=== PATIENT | female | born 1985 | race Caucasian/White ===

== ENCOUNTER 2024-08-02 15:04 | Inpatient (IN) | payer MEDICAID, OTHER ==
[~2024-08-02] VITALS: Ht 162.6 cm; Wt 79.1 kg
[2024-08-02 17:47] LABS: COVID AG,FIA SOURCE NASAL SWAB
[2024-08-02 17:49] LABS: BASOPHILS % (AUTO) 0.6 % (0.0-2.0); EOSINOPHILS % (AUTO) 1.5 % (1.0-6.0); HEMATOCRIT 32.5 % (36-46); HEMOGLOBIN 10.7 g/dL (12.0-16.0); LYMPHOCYTES # (AUTO) 1.7 K/uL (1.0-4.8); LYMPHOCYTES % (AUTO) 19.9 % (22.0-44.0); MEAN CORPUSCULAR HEMOGLOBIN 27.3 pg (26.0-34.0); MEAN CORPUSCULAR HGB CONC 32.8 G/dL (31.0-37.0); MEAN CORPUSCULAR VOLUME 83 fL (80-100); MONOCYTES # (AUTO) 0.6 K/uL (0.1-1.0); NEUTROPHILS # (AUTO) 6.1 K/uL (1.8-7.7); PLATELET COUNT (AUTO) 311 K/uL (150-450); RED BLOOD CELL COUNT(AUTO) 3.91 MIL/uL (4.00-5.20); RED CELL DISTRIBUTION WIDTH 17.5 % (11.5-14.5); WHITE BLOOD COUNT (AUTO) 8.6 K/uL (4.5-11.0)
[2024-08-02 17:56] LABS: ANION GAP 10 mmol/L (8-16); CALCIUM, TOTAL 8.8 mg/dL (8.8-10.5); CARBON DIOXIDE 23 mmol/L (22-29); CHLORIDE 102 mmol/L (98-107); CREATININE 0.72 mg/dL (0.60-1.30); GLOMERULAR FILTR. RATE CALC > 60 mL/min (>60); GLUCOSE,RANDOM 118 mg/dL (70-110); POTASSIUM 3.1 mmol/L (3.5-5.1); SODIUM SERUM 135 mmol/L (136-145); UREA NITROGEN, BLOOD 10 mg/dL (7-18)
[2024-08-02 18:04] LABS: ALCOHOL, BLOOD (SERUM) < 3 mg/dL (0-10)
[2024-08-02 18:08] LABS: SARS-COV2 (COVID) ANTIGEN,FIA Negative (Negative)
[2024-08-02 19:22] LABS: ALCOHOL, URINE DRUG SCREEN NEGATIVE (NEGATIVE); AMPHET/METH SCREEN,URINE POSITIVE (NEGATIVE); BARBITURATE SCREEN, URINE NEGATIVE (NEGATIVE); BENZODIAZEPINES SCREEN,URINE NEGATIVE (NEGATIVE); CANNABINOID SCREEN,URINE NEGATIVE (NEGATIVE); COCAINE SCREEN,URINE NEGATIVE (NEGATIVE); METHADONE SCREEN, URINE NEGATIVE (NEGATIVE); OPIATE SCREEN,URINE NEGATIVE (NEGATIVE); PHENCYCLIDINE SCREEN,URINE NEGATIVE (NEGATIVE)
[2024-08-02] MEDS: POTASSIUM CHLORIDE 20 MEQ ER TABLET PO ONE (20:16)
[2024-08-02] MEDS: HALOPERIDOL LACTATE 5 MG/ML VIAL IM ONE (20:54)
[2024-08-02] MEDS: DiphenhydrAMINE HCL 50 MG/ML VIAL IM ONE (20:55)
[2024-08-02] MEDS: LORazepam 2 MG/ML VIAL IM ONE (20:55)
[2024-08-03] MEDS: POTASSIUM CHLORIDE 20 MEQ ER TABLET PO ONE (23:01)
[2024-08-04 17:28] VITALS: BP 123/78; PULSE 89; RESP 18; TEMP 96.9; O2SAT 98
[2024-08-04 18:35] VITALS: BP 123/78; PULSE 89; RESP 18; TEMP 96.9; O2SAT 98
[2024-08-04 20:55] VITALS: RESP 18
[2024-08-05 11:34] VITALS: RESP 18
[2024-08-05] MEDS ORDERED: ALBUTEROL SULFATE HFA 90 MCG/PUFF 8 GM INHALER IH PRN (11:45)
[2024-08-05] MEDS ORDERED: MAG HYDROX/ALUMINUM HYD/SIMETH ES 30 ML SUSPENSION UDCUP PO PRN (11:45)
[2024-08-05] MEDS ORDERED: CloNIDine HCL 0.1 MG TABLET PO PRN (11:45)
[2024-08-05] MEDS ORDERED: ACETAMINOPHEN 325 MG TABLET PO PRN (11:45)
[2024-08-05] MEDS ORDERED: DOCUSATE SODIUM 100 MG CAPSULE PO PRN (11:45)
[2024-08-05] MEDS ORDERED: ONDANSETRON 4 MG TABLET PO PRN (11:45)
[2024-08-05] MEDS ORDERED: GuaiFENesin/D-METHORPHAN [SUGAR-FREE] 200-20MG/10 ML SYRUP UDCUP PO PRN (11:45)
[2024-08-05] MEDS ORDERED: PETROLATUM,WHITE 28 GM JELLY TP PRN (11:45)
[2024-08-05] MEDS ORDERED: NICOTINE 14 MG/24 HOUR PATCH TD PRN (11:45)
[2024-08-05] MEDS ORDERED: LOPERAMIDE HCL 2 MG CAPSULE PO PRN (11:45)
[2024-08-05] MEDS ORDERED: MAGNESIUM HYDROXIDE SUSPENSION 30 ML UDCUP PO PRN (11:45)
[2024-08-05] MEDS: OLANZapine 5 MG RAPDIS TABLET PO SCH (12:45)
[2024-08-05] MEDS: LEVOFLOXACIN 500 MG TABLET PO SCH (16:00)
[2024-08-05 20:57] VITALS: RESP 18
[2024-08-06 09:45] VITALS: BP 113/63; PULSE 97; RESP 18; TEMP 97.8; O2SAT 98
[2024-08-06 20:45] VITALS: RESP 18
[2024-08-07] MEDS: SILVER SULFADIAZINE 1% 25 GM CREAM TP SCH (08:42)
[2024-08-07] MEDS ORDERED: SILVER SULFADIAZINE 1% 25 GM CREAM TP SCH (09:00)
[2024-08-07 10:03] VITALS: BP 101/61; PULSE 90; RESP 16; TEMP 98.1; O2SAT 100
[2024-08-07 18:36] LABS: BASOPHILS % (AUTO) 0.7 % (0.0-2.0); EOSINOPHILS % (AUTO) 2.4 % (1.0-6.0); HEMOGLOBIN 11.5 g/dL (12.0-16.0); LYMPHOCYTES # (AUTO) 1.9 K/uL (1.0-4.8); LYMPHOCYTES % (AUTO) 23.3 % (22.0-44.0); MEAN CORPUSCULAR HEMOGLOBIN 27.3 pg (26.0-34.0); MEAN CORPUSCULAR HGB CONC 32.7 G/dL (31.0-37.0); MEAN CORPUSCULAR VOLUME 84 fL (80-100); MONOCYTES # (AUTO) 0.6 K/uL (0.1-1.0); MONOCYTES % (AUTO) 7.5 % (2.0-9.0); NEUTROPHILS # (AUTO) 5.4 K/uL (1.8-7.7); NEUTROPHILS % (AUTO) 66.1 % (40.0-70.0); PLATELET COUNT (AUTO) 342 K/uL (150-450); RED BLOOD CELL COUNT(AUTO) 4.19 MIL/uL (4.00-5.20); RED CELL DISTRIBUTION WIDTH 17.4 % (11.5-14.5); WHITE BLOOD COUNT (AUTO) 8.2 K/uL (4.5-11.0)
[2024-08-07 18:46] LABS: POTASSIUM 3.6 mmol/L (3.5-5.1); THYROID STIMULATING HORMONE 0.6 uIU/mL (0.36-3.74)
[2024-08-07 19:30] LABS: HEMOGLOBIN A1C 5.5 % (3.8-5.6)
[2024-08-07 20:42] VITALS: TEMP 98
[2024-08-08 08:49] VITALS: BP 113/58; PULSE 100; RESP 18; TEMP 98.1; O2SAT 100
[2024-08-08] MEDS: LORazepam 2 MG TABLET PO PRN (17:55)
[2024-08-08] MEDS: HALOPERIDOL 5 MG TABLET PO PRN (18:12)
[2024-08-08 20:34] VITALS: BP 121/71; PULSE 62; RESP 18; TEMP 98.2; O2SAT 98
[2024-08-09 09:14] VITALS: BP 98/53; PULSE 80; RESP 18; TEMP 97; O2SAT 98
[2024-08-09 20:47] VITALS: BP 129/83; PULSE 82; RESP 18; TEMP 97.8; O2SAT 99
[2024-08-10 08:43] VITALS: BP 93/57; PULSE 109; RESP 17; TEMP 97.8; O2SAT 99
[2024-08-10 15:22] VITALS: BP 126/67; PULSE 101; RESP 18
[2024-08-10 20:35] VITALS: BP 136/88; PULSE 70; RESP 18; TEMP 97.6
[2024-08-11 08:50] VITALS: BP 91/47; PULSE 100; RESP 18; TEMP 98.2; O2SAT 100
[2024-08-11 20:00] VITALS: BP 113/63; PULSE 100; RESP 18; TEMP 98; O2SAT 98
[2024-08-11] MEDS: ZOLPIDEM TARTRATE 10 MG TABLET PO PRN (21:31)
[2024-08-12 08:56] VITALS: BP 119/70; PULSE 98; RESP 18; TEMP 98.3; O2SAT 97
[2024-08-12 20:01] VITALS: BP 111/65; PULSE 110; RESP 20; TEMP 98.9; O2SAT 98
[2024-08-13 08:35] LABS: CHOL/HDL RATIO 4.7 (3.9-5.7)
[2024-08-13 09:29] VITALS: BP 126/71; PULSE 106; RESP 16; TEMP 97.5; O2SAT 100
[2024-08-13] MEDS: LORazepam 2 MG/ML VIAL IM ONE (12:35)
[2024-08-13] MEDS: HALOPERIDOL LACTATE 5 MG/ML VIAL IM ONE (12:35)
[2024-08-13] MEDS: DiphenhydrAMINE HCL 50 MG/ML VIAL IM ONE (12:36)
[2024-08-13 20:29] VITALS: BP 101/51; PULSE 113; RESP 18; TEMP 97.8; O2SAT 97
[2024-08-14 08:49] VITALS: BP 103/58; PULSE 96; RESP 14; TEMP 97.9; O2SAT 100
[2024-08-14] MEDS: LORazepam 2 MG/ML VIAL IM ONE (15:52)
[2024-08-14] MEDS: DiphenhydrAMINE HCL 50 MG/ML VIAL IM ONE (15:53)
[2024-08-14] MEDS: HALOPERIDOL LACTATE 5 MG/ML VIAL IM ONE (15:53)
[2024-08-14 20:13] VITALS: BP 115/65; PULSE 100; RESP 17; TEMP 97.8; O2SAT 100
[2024-08-14 20:50] VITALS: BP 120/64; PULSE 97; RESP 18; TEMP 97.6; O2SAT 98
[2024-08-14] MEDS: IBUPROFEN 400 MG TABLET PO PRN (20:54)
[2024-08-14 21:54] VITALS: RESP 18
[2024-08-15 08:22] VITALS: BP 89/48; PULSE 96; RESP 17; TEMP 97.4; O2SAT 99
[2024-08-15 09:22] VITALS: BP 98/57; PULSE 103; RESP 18; TEMP 97.2; O2SAT 99
[2024-08-15] MEDS: OLANZapine 5 MG RAPDIS TABLET PO SCH (21:16)
[2024-08-15 21:51] VITALS: BP 114/74; PULSE 104; RESP 18; TEMP 97.2; O2SAT 97
[2024-08-16 08:54] VITALS: BP 106/58; PULSE 72; RESP 18; TEMP 97.5; O2SAT 99
[2024-08-16 20:44] VITALS: BP 120/77; PULSE 86; RESP 18; TEMP 98.1; O2SAT 99
[2024-08-17 08:27] VITALS: BP 107/64; PULSE 101; RESP 18; TEMP 97.5; O2SAT 97
[2024-08-17 20:27] VITALS: BP 106/61; PULSE 107; RESP 18; TEMP 98.9; O2SAT 97
[2024-08-18 08:41] VITALS: BP 146/57; PULSE 76; RESP 18; TEMP 97.4; O2SAT 96
[2024-08-18 20:40] VITALS: BP 111/63; PULSE 107; RESP 19; TEMP 98.1; O2SAT 95
[2024-08-19 02:26] VITALS: BP 114/69; PULSE 96; RESP 18; O2SAT 98
[2024-08-19] MEDS ORDERED: OLAN5TAB94 PO (11:21)
== END 2024-08-19 16:04 | disposition home or self-care (01) | DRG 750 ==
LOC: EMS 15:14 → 3EI 08-04 16:55
PROVIDERS: ADMIT Psychiatry & Neurology Child & Adolescent Psychiatry; ATTEND Psychiatry & Neurology Child & Adolescent Psychiatry
PROC: GZ56ZZZ Individual Psychotherapy, Supportive (ICD-10-PCS; principal; 2024-08-05)
PROC: GZ52ZZZ Individual Psychotherapy, Cognitive (ICD-10-PCS; 2024-08-05)
DX: F20.0 Paranoid schizophrenia (principal); D64.9 Anemia, unspecified; F15.129 Other stimulant abuse with intoxication, unspecified; E87.6 Hypokalemia; I87.8 Other specified disorders of veins; F94.0 Selective mutism; R73.9 Hyperglycemia, unspecified; I10 Essential (primary) hypertension; Z20.822 Contact with and (suspected) exposure to COVID-19; Z88.1 Allergy status to other antibiotic agents; Z87.891 Personal history of nicotine dependence; Z78.1 Physical restraint status
CPT/HCPCS: 80048; 80061; 80307; 83036; 84132; 84443; 84703; 85025; 96372; 99291; G0480; J1200; J1630; J2060

== ENCOUNTER 2024-08-20 16:19 | Inpatient (IN) | payer MEDICAID ==
[~2024-08-20] VITALS: Ht 162.6 cm; Wt 76.0 kg
[~2024-08-20 16:19] MED LIST: OLAN5TAB94 PO
[2024-08-20] MEDS: LORazepam 2 MG/ML VIAL IM ONE (16:59)
[2024-08-20] MEDS: DiphenhydrAMINE HCL 50 MG/ML VIAL IM ONE (17:00)
[2024-08-20] MEDS: HALOPERIDOL LACTATE 5 MG/ML VIAL IM ONE (17:00)
[2024-08-20] MEDS: SODIUM CHLORIDE 0.9% 1,000 ML IV ONE (18:20)
[2024-08-20 18:29] LABS: COVID AG,FIA SOURCE NASAL SWAB
[2024-08-20 18:32] LABS: BASOPHILS % (AUTO) 0.3 % (0.0-2.0); EOSINOPHILS % (AUTO) 2.8 % (1.0-6.0); HEMATOCRIT 29.3 % (36-46); HEMOGLOBIN 9.5 g/dL (12.0-16.0); LYMPHOCYTES # (AUTO) 1.6 K/uL (1.0-4.8); LYMPHOCYTES % (AUTO) 18.5 % (22.0-44.0); MEAN CORPUSCULAR HEMOGLOBIN 27.7 pg (26.0-34.0); MEAN CORPUSCULAR HGB CONC 32.4 G/dL (31.0-37.0); MEAN CORPUSCULAR VOLUME 86 fL (80-100); MONOCYTES # (AUTO) 0.8 K/uL (0.1-1.0); MONOCYTES % (AUTO) 9.4 % (2.0-9.0); NEUTROPHILS # (AUTO) 5.9 K/uL (1.8-7.7); PLATELET COUNT (AUTO) 348 K/uL (150-450); RED BLOOD CELL COUNT(AUTO) 3.42 MIL/uL (4.00-5.20); RED CELL DISTRIBUTION WIDTH 17.9 % (11.5-14.5); WHITE BLOOD COUNT (AUTO) 8.5 K/uL (4.5-11.0)
[2024-08-20 18:44] LABS: ALCOHOL, BLOOD (SERUM) < 3 mg/dL (0-10)
[2024-08-20 18:47] LABS: SARS-COV2 (COVID) ANTIGEN,FIA Negative (Negative)
[2024-08-20 18:53] LABS: ANION GAP 9 mmol/L (8-16); CALCIUM, TOTAL 8.4 mg/dL (8.8-10.5); CARBON DIOXIDE 26 mmol/L (22-29); CHLORIDE 103 mmol/L (98-107); CREATININE 0.75 mg/dL (0.60-1.30); GLOMERULAR FILTR. RATE CALC > 60 mL/min (>60); GLUCOSE,RANDOM 100 mg/dL (70-110); POTASSIUM 3.4 mmol/L (3.5-5.1); SODIUM SERUM 138 mmol/L (136-145); UREA NITROGEN, BLOOD 15 mg/dL (7-18)
[2024-08-21] MEDS: LORazepam 2 MG TABLET PO ONE ×2 (02:31→08:55)
[2024-08-21] MEDS: ZIPRASIDONE MESYLATE 20 MG/VIAL IM ONE (09:55)
[2024-08-21] MEDS ORDERED: ACETAMINOPHEN 325 MG TABLET PO PRN (12:45)
[2024-08-21] MEDS ORDERED: MAGNESIUM HYDROXIDE SUSPENSION 30 ML UDCUP PO PRN ×2 (12:45)
[2024-08-21] MEDS ORDERED: MAG HYDROX/ALUMINUM HYD/SIMETH ES 30 ML SUSPENSION UDCUP PO PRN ×2 (12:45)
[2024-08-21] MEDS ORDERED: LOPERAMIDE HCL 2 MG CAPSULE PO PRN ×2 (12:45)
[2024-08-21 13:45] LABS: PH,URINE DRUG SCREEN 6.5 (5.0-8.0)
[2024-08-21 13:53] LABS: ALCOHOL, URINE DRUG SCREEN NEGATIVE (NEGATIVE); AMPHET/METH SCREEN,URINE NEGATIVE (NEGATIVE); BARBITURATE SCREEN, URINE NEGATIVE (NEGATIVE); BENZODIAZEPINES SCREEN,URINE NEGATIVE (NEGATIVE); CANNABINOID SCREEN,URINE POSITIVE (NEGATIVE); COCAINE SCREEN,URINE NEGATIVE (NEGATIVE); METHADONE SCREEN, URINE NEGATIVE (NEGATIVE); OPIATE SCREEN,URINE NEGATIVE (NEGATIVE); PHENCYCLIDINE SCREEN,URINE NEGATIVE (NEGATIVE)
[2024-08-21] MEDS: LORazepam 2 MG TABLET PO PRN (15:43)
[2024-08-21] MEDS: HALOPERIDOL 5 MG TABLET PO PRN (15:43)
[2024-08-21] MEDS: ZOLPIDEM TARTRATE 10 MG TABLET PO PRN (17:37)
[2024-08-22 00:30] VITALS: RESP 19; TEMP 98
[2024-08-22 06:17] VITALS: BP 134/78; PULSE 75; RESP 17; TEMP 97.8; O2SAT 97
[2024-08-22] MEDS: ACETAMINOPHEN 325 MG TABLET PO PRN (06:20)
[2024-08-22 07:20] VITALS: RESP 18
[2024-08-22 09:16] VITALS: BP 128/82; PULSE 108; RESP 18; TEMP 97.4; O2SAT 98
[2024-08-22] MEDS ORDERED: GuaiFENesin/D-METHORPHAN [SUGAR-FREE] 200-20MG/10 ML SYRUP UDCUP PO PRN (11:45)
[2024-08-22] MEDS ORDERED: MAG HYDROX/ALUMINUM HYD/SIMETH ES 30 ML SUSPENSION UDCUP PO PRN (11:45)
[2024-08-22] MEDS ORDERED: NICOTINE 14 MG/24 HOUR PATCH TD PRN (11:45)
[2024-08-22] MEDS ORDERED: ONDANSETRON 4 MG TABLET PO PRN (11:45)
[2024-08-22] MEDS ORDERED: LOPERAMIDE HCL 2 MG CAPSULE PO PRN (11:45)
[2024-08-22] MEDS ORDERED: ACETAMINOPHEN 325 MG TABLET PO PRN (11:45)
[2024-08-22] MEDS ORDERED: ALBUTEROL SULFATE HFA 90 MCG/PUFF 8 GM INHALER IH PRN (11:45)
[2024-08-22] MEDS ORDERED: MAGNESIUM HYDROXIDE SUSPENSION 30 ML UDCUP PO PRN (11:45)
[2024-08-22] MEDS ORDERED: DOCUSATE SODIUM 100 MG CAPSULE PO PRN (11:45)
[2024-08-22] MEDS ORDERED: PETROLATUM,WHITE 28 GM JELLY TP PRN (11:45)
[2024-08-22] MEDS ORDERED: CloNIDine HCL 0.1 MG TABLET PO PRN (11:45)
[2024-08-22] MEDS: OLANZapine 7.5 MG TABLET PO SCH (13:36)
[2024-08-22] MEDS: SILVER SULFADIAZINE 1% 25 GM CREAM TP SCH (16:23)
[2024-08-22] MEDS: SULFAMETHOX/TRIMETH DS 800-160 MG/TABLET PO SCH (16:25)
[2024-08-23 01:35] VITALS: BP 137/75; PULSE 82; RESP 18; TEMP 97.6; O2SAT 98
[2024-08-23] MEDS: IBUPROFEN 400 MG TABLET PO PRN (01:38)
[2024-08-23 02:38] VITALS: RESP 18
[2024-08-23 08:07] LABS: HEMOGLOBIN A1C 5.2 % (3.8-5.6)
[2024-08-23 08:13] VITALS: BP 109/65; PULSE 90; RESP 19; TEMP 97.9; O2SAT 97
[2024-08-23 08:19] LABS: THYROID STIMULATING HORMONE 2.3 uIU/mL (0.36-3.74)
[2024-08-23 09:04] LABS: CHOL/HDL RATIO 3.3 (3.9-5.7)
[2024-08-23] MEDS ORDERED: OLAN7.5T22 PO (11:47)
== END 2024-08-23 18:09 | disposition home or self-care (01) | DRG 750 ==
LOC: EMS 16:19 → EDH 08-21 14:14 → UNDOADMIN 08-21 14:14 → 3EC 08-22 00:37
PROVIDERS: ADMIT Psychiatry & Neurology Psychiatry; ATTEND Psychiatry & Neurology Child & Adolescent Psychiatry
PROC: GZ56ZZZ Individual Psychotherapy, Supportive (ICD-10-PCS; principal; 2024-08-22)
DX: F20.0 Paranoid schizophrenia (principal); D64.9 Anemia, unspecified; E87.6 Hypokalemia; F20.9 Schizophrenia, unspecified; Z20.822 Contact with and (suspected) exposure to COVID-19; F15.10 Other stimulant abuse, uncomplicated
CPT/HCPCS: 80048; 80061; 80307; 83036; 84443; 85025; 87081; 99285; G0378; G0480; J1200; J1630; J2060; J3486

== ENCOUNTER 2024-08-31 12:49 | Inpatient (IN) | payer MEDICAID ==
[~2024-08-31] VITALS: Ht 162.6 cm; Wt 81.6 kg
[~2024-08-31 12:49] MED LIST changes: -OLAN5TAB94 PO; +OLAN7.5T22 PO
[2024-08-31 14:52] LABS: BASOPHILS % (AUTO) 0.8 % (0.0-2.0); EOSINOPHILS % (AUTO) 4.4 % (1.0-6.0); HEMATOCRIT 31.7 % (36-46); HEMOGLOBIN 10.2 g/dL (12.0-16.0); LYMPHOCYTES # (AUTO) 1.9 K/uL (1.0-4.8); LYMPHOCYTES % (AUTO) 23.1 % (22.0-44.0); MEAN CORPUSCULAR HGB CONC 32.3 G/dL (31.0-37.0); MEAN CORPUSCULAR VOLUME 87 fL (80-100); MONOCYTES # (AUTO) 0.7 K/uL (0.1-1.0); MONOCYTES % (AUTO) 8.3 % (2.0-9.0); NEUTROPHILS # (AUTO) 5.2 K/uL (1.8-7.7); NEUTROPHILS % (AUTO) 63.4 % (40.0-70.0); PLATELET COUNT (AUTO) 363 K/uL (150-450); RED BLOOD CELL COUNT(AUTO) 3.65 MIL/uL (4.00-5.20); RED CELL DISTRIBUTION WIDTH 17.2 % (11.5-14.5); WHITE BLOOD COUNT (AUTO) 8.2 K/uL (4.5-11.0)
[2024-08-31 15:09] LABS: ANION GAP 10 mmol/L (8-16); CALCIUM, TOTAL 8.6 mg/dL (8.8-10.5); CARBON DIOXIDE 24 mmol/L (22-29); CHLORIDE 104 mmol/L (98-107); CREATININE 0.45 mg/dL (0.60-1.30); GLOMERULAR FILTR. RATE CALC > 60 mL/min (>60); GLUCOSE,RANDOM 98 mg/dL (70-110); POTASSIUM 4.4 mmol/L (3.5-5.1); SODIUM SERUM 138 mmol/L (136-145); UREA NITROGEN, BLOOD 15 mg/dL (7-18)
[2024-08-31 15:19] LABS: ALCOHOL, BLOOD (SERUM) < 3 mg/dL (0-10)
[2024-08-31 16:00] LABS: COVID AG,FIA SOURCE NASAL SWAB
[2024-08-31 17:00] LABS: SARS-COV2 (COVID) ANTIGEN,FIA Negative (Negative)
[2024-08-31 23:38] VITALS: BP 110/62; PULSE 88; RESP 18; TEMP 97; O2SAT 98
[2024-09-01] MEDS: HALOPERIDOL 5 MG TABLET PO PRN (08:35)
[2024-09-01] MEDS: LORazepam 2 MG TABLET PO PRN (08:35)
[2024-09-01 09:00] VITALS: BP 115/60; PULSE 85; RESP 18; TEMP 97; O2SAT 99
[2024-09-01] MEDS ORDERED: MAGNESIUM HYDROXIDE SUSPENSION 30 ML UDCUP PO PRN (09:45)
[2024-09-01] MEDS ORDERED: ONDANSETRON 4 MG TABLET PO PRN (09:45)
[2024-09-01] MEDS ORDERED: MAG HYDROX/ALUMINUM HYD/SIMETH ES 30 ML SUSPENSION UDCUP PO PRN (09:45)
[2024-09-01] MEDS ORDERED: ACETAMINOPHEN 325 MG TABLET PO PRN (09:45)
[2024-09-01] MEDS ORDERED: DOCUSATE SODIUM 100 MG CAPSULE PO PRN (09:45)
[2024-09-01] MEDS ORDERED: NICOTINE 14 MG/24 HOUR PATCH TD PRN (09:45)
[2024-09-01] MEDS ORDERED: GuaiFENesin/D-METHORPHAN [SUGAR-FREE] 200-20MG/10 ML SYRUP UDCUP PO PRN (09:45)
[2024-09-01] MEDS ORDERED: LOPERAMIDE HCL 2 MG CAPSULE PO PRN (09:45)
[2024-09-01] MEDS ORDERED: ALBUTEROL SULFATE HFA 90 MCG/PUFF 8 GM INHALER IH PRN (09:45)
[2024-09-01] MEDS ORDERED: PETROLATUM,WHITE 28 GM JELLY TP PRN (09:45)
[2024-09-01] MEDS ORDERED: CloNIDine HCL 0.1 MG TABLET PO PRN (09:45)
[2024-09-01] MEDS: OLANZapine 7.5 MG TABLET PO SCH (11:58)
[2024-09-01 20:12] VITALS: RESP 18
[2024-09-02 07:48] LABS: THYROID STIMULATING HORMONE 0.39 uIU/mL (0.36-3.74)
[2024-09-02 07:53] LABS: HEMOGLOBIN A1C 4.8 % (3.8-5.6)
[2024-09-02] MEDS: ETHYL ALCOHOL 62% ANTISEPTIC NASAL SANITIZER 0.6 ML AMPUL NASAL SCH (08:00)
[2024-09-02 08:22] LABS: CHOL/HDL RATIO 3.1 (3.9-5.7)
[2024-09-02 08:48] VITALS: BP 124/80; PULSE 112; RESP 17; TEMP 97.4; O2SAT 98
[2024-09-02 15:38] VITALS: BP_SYST 124; BP_SYST 131; BP_DIAS 74; BP_DIAS 80; PULSE 112; PULSE 72; RESP 17; TEMP 97.4; TEMP 98
[2024-09-02] MEDS: IBUPROFEN 400 MG TABLET PO PRN (15:38)
[2024-09-02 16:38] VITALS: BP 111/81; PULSE 78; RESP 16; TEMP 97
[2024-09-02 20:28] VITALS: BP 100/80; PULSE 80; RESP 18; TEMP 97.6
[2024-09-03 03:05] VITALS: BP 118/77; PULSE 101; RESP 18
[2024-09-03] MEDS: MULTIVITAMINS WITH MINERALS, THERAPEUTIC TABLET PO SCH (08:06)
[2024-09-03] MEDS: ASCORBIC ACID 500 MG TABLET PO SCH (08:06)
[2024-09-03] MEDS: ZINC SULFATE 220 MG CAPSULE PO SCH (08:06)
[2024-09-03 10:18] VITALS: BP 108/67; PULSE 90; RESP 19; TEMP 97.5
[2024-09-03] MEDS: DiphenhydrAMINE HCL 50 MG/ML VIAL IM ONE (16:36)
[2024-09-03] MEDS: HALOPERIDOL LACTATE 5 MG/ML VIAL IM ONE (16:36)
[2024-09-03 20:45] VITALS: RESP 18; TEMP 97.7
[2024-09-04 08:30] VITALS: BP 107/64; PULSE 100; RESP 17; TEMP 97.9
[2024-09-04 21:40] VITALS: TEMP 97.5
[2024-09-05 08:40] VITALS: BP 123/79; PULSE 107; RESP 18; TEMP 98; O2SAT 97
[2024-09-05 20:38] VITALS: RESP 18
[2024-09-05] MEDS: OLANZapine 10 MG TABLET PO SCH (20:42)
[2024-09-05] MEDS: DIVALPROEX SODIUM 500 MG DR TABLET PO SCH (20:42)
[2024-09-06 10:27] VITALS: BP 114/66; PULSE 100; RESP 17; TEMP 97.9; O2SAT 97
[2024-09-06 20:17] VITALS: RESP 18
[2024-09-07 08:38] VITALS: BP 108/72; PULSE 106; RESP 19; TEMP 98.4; O2SAT 98
[2024-09-07 20:40] VITALS: BP 99/56; PULSE 89; RESP 18; TEMP 98.8; O2SAT 97
[2024-09-07] MEDS: ZOLPIDEM TARTRATE 10 MG TABLET PO PRN (21:37)
[2024-09-08 08:30] VITALS: BP 109/66; PULSE 90; RESP 18; TEMP 98.2; O2SAT 100
[2024-09-08 20:29] VITALS: BP 126/79; PULSE 89; RESP 18; TEMP 97.3; O2SAT 98
[2024-09-09 09:43] VITALS: BP 95/60; PULSE 89; RESP 18; TEMP 97.5; O2SAT 98
[2024-09-09 16:39] VITALS: BP 116/77; PULSE 76; RESP 20
[2024-09-09 20:30] VITALS: RESP 18
[2024-09-10 11:11] VITALS: BP 101/64; PULSE 89; RESP 18; TEMP 97.7; O2SAT 99
[2024-09-10 20:15] VITALS: BP 111/72; PULSE 84; RESP 17; TEMP 97.6; O2SAT 98
[2024-09-11 08:32] VITALS: BP 108/85; PULSE 86; RESP 17; TEMP 97.8; O2SAT 99
[2024-09-11 20:50] VITALS: BP 114/54; PULSE 100; RESP 18; TEMP 97.6; O2SAT 99
[2024-09-12 09:35] VITALS: BP 123/67; PULSE 86; RESP 18; O2SAT 98
[2024-09-12 11:02] VITALS: BP 123/67; PULSE 86; RESP 17; TEMP 98; O2SAT 98
[2024-09-12 16:26] VITALS: BP 119/64; PULSE 78; RESP 18; O2SAT 97
[2024-09-12 21:27] VITALS: BP 104/56; PULSE 94; RESP 18; TEMP 97.2; O2SAT 96
[2024-09-13] MEDS ORDERED: OLAN10TA74 PO (12:35)
[2024-09-13] MEDS ORDERED: DIVA-112 PO (12:45)
== END 2024-09-13 13:15 | disposition home or self-care (01) | DRG 750 ==
LOC: EMS 12:49 → 3EC 21:45 → UNDOADMIN 23:57 → 3EI 09-08 09:00
PROVIDERS: ADMIT Psychiatry & Neurology Child & Adolescent Psychiatry; ATTEND Psychiatry & Neurology Child & Adolescent Psychiatry
PROC: GZ56ZZZ Individual Psychotherapy, Supportive (ICD-10-PCS; principal; 2024-09-01)
PROC: GZHZZZZ Group Psychotherapy (ICD-10-PCS; 2024-09-01)
DX: F20.0 Paranoid schizophrenia (principal); S81.801A Unspecified open wound, right lower leg, initial encounter; S81.802A Unspecified open wound, left lower leg, initial encounter; D64.9 Anemia, unspecified; E66.3 Overweight; S80.12XA Contusion of left lower leg, initial encounter; Z20.822 Contact with and (suspected) exposure to COVID-19; Z68.30 Body mass index [BMI] 30.0-30.9, adult; F15.90 Other stimulant use, unspecified, uncomplicated; F90.9 Attention-deficit hyperactivity disorder, unspecified type; I89.0 Lymphedema, not elsewhere classified; R40.0 Somnolence; X58.XXXA Exposure to other specified factors, initial encounter; Y93.89 Activity, other specified; Y92.89 Other specified places as the place of occurrence of the external cause; Y99.8 Other external cause status; I10 Essential (primary) hypertension
CPT/HCPCS: 80048; 80061; 80164; 83036; 84443; 84703; 85025; 87081; 99285; G0480; J1200; J1630

== ENCOUNTER 2024-10-12 23:52 | Emergency (ER) | payer MEDICAID ==
[~2024-10-12] VITALS: Ht 162.6 cm; Wt 68.1 kg
[~2024-10-12 23:52] MED LIST changes: +DIVA-112 PO; +OLAN10TA74 PO; -OLAN7.5T22 PO
[2024-10-12 23:57] VITALS: BP 112/68; PULSE 110; RESP 22; TEMP 97.4; O2SAT 95
== END 2024-10-13 00:10 | disposition left against medical advice (07) ==
LOC: EMS 23:54
DX: M79.604 Pain in right leg (principal); Z53.21 Procedure and treatment not carried out due to patient leaving prior to being seen by health care provider